=== PATIENT | female | born 1960 | race Caucasian/White ===

== ENCOUNTER 2024-11-26 09:20 | Emergency (ER) | payer OTHER, SELFPAY ==
--- OUTSIDE RECORDS SUMMARY | 2024-11-26 09:23 | XMS_ITS | Clinical Summary ---
Author Organization [facility] Address [facility] [place] [address] Care Team Providers Care Layout Technician Name Role Phone Mercy Forbes LIFE SCIENCES MANAGER Primary Care Provider [phone] Allergies Active Allergy Reactions Criticality Noted Date Comments Cephalexin Hives 02/25/2024 Medications omeprazole EC (PRILOSEC OTC) 20 MG tablet Take 1 tablet (20 mg total) by mouth daily. Active Active Problems No known active problems Resolved Problems Problem Noted Date Diagnosed Date Resolved Date Soft tissue mass 05/13/2024 07/07/2024 Social History Tobacco Use Types Packs/Day Years Used Date Smoking Tobacco: Every Day Cigarettes Smokeless Tobacco: Never Tobacco Cessation:Ready to Q uit: No; Counseling Given: No Alcohol Use Standard Drinks/Week Comments Yes 0 (1 standard drink = 0.6 oz pur e alcohol) Socially Comments No Sex and Gender Information Value Date Recorded Sex Assigned at Not on file Legal Sex Female 8:01 PM CDT Gender Identity Not on file Sexual Orientation Not on file Last Filed Vital Signs Vital Sign Reading Time Taken Comments Blood Pressure 146/85 07/07/2024 12:54 PM HEAD GREENSKEEPER Pulse 75 07/07/2024 12:54 PM HEAD GREENSKEEPER Temperature 36.7 C (98.1 F) 07/07/2024 12:54 PM HEAD GREENSKEEPER Respiratory Rate 16 07/07/2024 12:54 PM HEAD GREENSKEEPER Oxygen Saturation 98% 07/07/2024 12:54 PM HEAD GREENSKEEPER Inhaled Oxygen Concentration - - Weight 61.2 kg (135 lb) 06/14/2024 1:03 PM HEAD GREENSKEEPER Height 177.8 cm (5' 10 ) 06/14/2024 1:03 PM HEAD GREENSKEEPER Body Mass Index 19.37 06/14/2024 1:03 PM HEAD GREENSKEEPER Plan of Treatment Health Maintenance Due Date Last Done Comments Cervical Cancer Screening Pap Smear (Age 30 to 64) Every 3 Years 1962 Colorectal Cancer Screening Colonoscopy (10 Years) 1962 Annual Physical 1965 Hepatitis C 1980 DTaP, Tdap and Td Vaccines (1 - Tdap) 1981 Pneumococcal Vaccine: 50+ Years (1 of 2 - PCV) 1981 Cervical Cancer Screening Pap with HPV Testing (Age 30 to 64) Every 5 Years 1992 Cervical Cancer Screening with HPV 1992 Mammogram Screening 2002 Zoster Vaccines (1 of 2) 2012 COVID-19 Vaccine ( season) 2024 05/01/2023, 04/30/2022, 07/14/2021, Additional history exists PHQ-2 (Physician [place]) 07/13/2024 RSV Immunization or 60+ Years (1 - 1-dose 75+ series) 2037 Meningococcal B Vaccine Aged Out No l onger eligible based on patient's age to complete this topic Meningococcal Vaccine Aged Out No liliana natalya eligible based on patient's age to complete this topic RSV Immunizations Under 20 Months Aged Out No longer eligible based on patient's age to complete this topic Insurance [address] [place] [id number] [employer] Care Teams Layout Technician Relationship Specialty Start Date End Date Mercy Forbes FNP [address] [place] [id number] PCP - General Nurse Practitioner Family 02/25/24
--- OUTSIDE RECORDS SUMMARY | 2024-11-26 09:23 | XMS_ITS | Data Portability ---
Author Organization [facility] Main Office Address [address] [place] [address] Assessment Encounter Date Assessment Date Assessment LastModified by Organization Details LastModified Time 10/30/2022 10/30/2022 Patient has moderate primary osteoarthritis both knee joints. Under sterile conditions I injected both knee joints in the office today with Euflexxa injection number 2. I will see her back next week for the 3rd injection both knees she voiced understanding agrees above plan she will call for any further problems difficulties or questions. Not available 10/30/2022 10:26:02 11/06/2022 11/06/2022 The patient has moderately severe primary osteoarthritis both knees under sterile conditions I injected both knee joints in the office today with Euflexxa injection number 3. She tolerated procedure well. Will see her back in 6 months if necessary for another round of gel shots versus cortisone in between again if necessary. She voiced understanding and agrees above plan she will call for any further problems difficulties or questions. Not available 11/06/2022 09:11:22 04/02/2023 04/02/2023 The patient has moderately advanced primary osteoarthritis both knees. Under sterile conditions at her request I injected both knee joints in the office today with 4 cc 0.5% ropivacaine and 20 mg of Kenalog each. Patient tolerated the procedure well. I will see her back as needed we can do gel shots again in a couple of months if she would like to try them again versus cortisone in 3 months. She voiced understanding agrees above plan she will call for any further problems difficulties or questions. Not available 04/02/2023 14:23:24 08/27/2023 08/27/2023 The patient has moderate primary osteoarthritis both knee joints as described under sterile conditions I injected both knee joints in the office today with 4 cc 0.5% bupivacaine and 20 mg of Kenalog each. Patient tolerated the procedure well. I will see her back as needed we can do gel shots next time if she would like she is going to think about it she voiced understanding agrees above plan she will call for any further problems difficulties or questions. We could do this again in 3 months verses gel shots in a couple of months if necessary. Not available 08/27/2023 09:26:19 05/13/2024 05/13/2024 The patient has moderate primary osteoarthritis both knees under sterile conditions I injected both knee joints in the office today with 4 cc of 0.5% bupivacaine and 20 mg of Kenalog each. The patient tolerated the procedures well. I will see her back as needed we can do this again in 3 months if necessary last time she made it almost 9 months. She voiced understanding agrees above plan she will call for any further problems difficulties or questions. Not available 05/13/2024 10:48:34 Plan of Treatment Reminders Order Date Submit Date Provider Last Modified By Organization Details Last Modified Time Details Appointments None recorded. Lab None recorded. Referral None recorded. Procedures injection/a spiration joint/bursa (PROC) 2023 024 [email or web address] In-Office Order, Internal Use Only DO Not Attach Compendium DO Not Attach Compendium, Do Not Delete/merge, [id number] 10:41:16 injection/a spiration joint/bursa (PROC) 2023 024 [email or web address] In-Office Order, Internal Use Only DO Not Attach Compendium DO Not Attach Compendium, Do Not Delete/merge, [id number] 09:04:33 injection/a spiration joint/bursa (PROC) - in office procedure, administere d by provider 2022 023 [email or web address] In-Office Order, Internal Use Only DO Not Attach Compendium DO Not Attach Compendium, Do Not Delete/merge, [id number] 14:20:22 knee aspiration/ injection (PROC) 2022 023 [email or web address] In-Office Order, Internal Use Only DO Not Attach Compendium DO Not Attach Compendium, Do Not Delete/merge, [id number] 09:02:00 knee aspiration/ injection (PROC) 2022 023 [email or web address] In-Office Order, Internal Use Only DO Not Attach Compendium DO Not Attach Compendium, Do Not Delete/merge, [id number] 10:16:48 Surgeries None recorded. Imaging None recorded. Medication Orders bupivacaine HCl 0.5 % (5 mg/mL) injection solution 2023 024 [email or web address] [id number], [address] [place] [address], [address], 4 10:49:16 Kenalog 10 mg/mL suspension for injection 2023 024 [email or web address] [id number], [address], [address], 4 10:49:16 bupivacaine HCl 0.5 % (5 mg/mL) injection solution 2023 024 [email or web address] [id number], [address] [facility] [address] [place] [address], [address], 4 10:36:09 Kenalog 10 mg/mL suspension for injection 2023 024 [email or web address] [id number], [address] [facility] [address] [place] [address], [address], 4 10:36:24 Kenalog 10 mg/mL suspension for injection 2022 023 [email or web address] [id number], [address] [place], [place], [id number], 4 10:36:24 ropivacaine (PF) 5 mg/mL (0.5 %) injection solution 2022 023 [email or web address] [id number], [address], [place], [id number], 4 10:36:48 Euflexxa 10 mg/mL (mw 2.4-3.6 million) intra-artic ular syringe 2022 023 [email or web address] [id number], [address], [place], [id number], 4 10:36:19 Euflexxa 10 mg/mL (mw 2.4-3.6 million) intra-artic ular syringe 2022 023 [email or web address] [id number], [address], [place], [id number], 10:36:19 Patient TargetsNo targets recorded. Patient Instructions Encounter Date Encounter Id Patient Instructions Last Modified By Organization Details Last Modified Time 08/27/2023 [id number] viscosupplementa tion treatment* Not available 08/31/2023 14:47:17 Reason for Referral None Reported. Problems Name Problem SNOMED Code Status Onset Date Resolution Date Notes Provider Name and Address Organization Details Recorded Time Pain of bilateral knee joints 4573188747024 04 Active 2022 Mariam Reddy ATC L null, [employer] 3 08:56:11 Bilateral osteoarthri tis of knees 1545074029073 07 Active 2022 Mariam Reddy ATC L null, [employer] 3 08:58:28 Problem Notes None recorded. Procedures Surgical History Date Name Laterality Status Provider Name and Address Organization Details Recorded Time 3 Ortho - Cortisone Injection completed Leo Power MD [address] [place] [address], [id number], [employer] 09/18/2022 10:17:25 Imaging Results None recorded. Procedure Notes None recorded. Medical Equipment None Reported. Allergies Allergen ID Allergen Name Allergen Category Reaction Reaction Severity Criticality Documentation Date Start Date Code Code System Note Provider Name and Address Organization Details Recorded Time 29146 Keflex medicatio n hives Not available Not available 09/10/202225411 7 RxNorm Not Available [facility] 3 13:14:35 Medications Name Sig Start Date Stop Date Status Note LastModified by Organization Details LastModified Time cyclobenzap rine 10 mg tablet TAKE 1 TABLET BY MOUTH THREE TIMES DAILY NEEDED FOR MUSCLE SPASMS 05/13 completed Not Available Not Available Not Available silver sulfadiazin e 1 % topical cream 05/13 completed Not Available Not Available Not Available bupropion HCl SR 150 mg tablet,12 hr sustained-r elease 05/13 completed Not Available Not Available Not Available prednisone 10 mg tablet 05/13 completed Not Available Not Available Not Available hydrocortis one-pramoxi ne 2.5 %-1 % rectal cream 05/13 completed Not Available Not Available Not Available azithromyci n 250 mg tablet TAKE 2 TABLETS BY MOUTH FOR 1 DAY THEN TAKE 1 TABLET BY MOUTH DAILY FOR 4 DAYS 05/13 completed Not Available Not Available Not Available hydrocodone 5 mg-acetamin ophen 325 mg tablet TAKE 1 TABLET BY MOUTH EVERY 8 HOURS NEEDED FOR PAIN 09/18 completed Not Available Not Available Not Available meloxicam 15 mg tablet Take 1 tablet every day by oral route. 04/26 completed Not Available Not Available Not Available famotidine 40 mg tablet 04/26 completed Not Available Not Available Not Available bupivacaine HCl 0.5 % (5 mg/mL) injection solution Take 40 mg by injection route. 2023 active Not Available Not Available Not Avai lable prednisone 20 mg tablet 05/13 completed Not Available Not Available Not Available permethrin 5 % topical cream 05/13 completed Not Available Not Available Not Available sumatriptan 50 mg tablet 05/13 completed Not Available Not Available Not Available omeprazole 40 mg capsule,del ayed release 05/13 completed Not Available Not Available Not Available hydrocortis one acetate 25 mg rectal suppository 05/13 completed Not Available Not Available Not Available pantoprazol e 20 mg tablet,hayley yed release 05/13 completed Not Available Not Available Not Available prednisone 10 mg tablets in a dose pack Take 1 tab by mouth, 3 times a day for 3 daysTake 1 tab by mouth 2 times a day for 2 daysTake 1 tab by mouth once a day for 1 day 05/13 completed Not Available Not Available Not Available lorazepam 0.5 mg tablet 05/13 completed Not Available Not Available Not Available Kenalog 10 mg/mL suspension for injection Take 40 mg by injection route. 2023 active ND: 0003- 0494- 20 Not Available Not Available Not Available meclizine 25 mg tablet TAKE 1 TABLET BY MOUTH TWICE DAILY NEEDED FOR DIZZINESS 05/13 completed Not Available Not Available Not Available mupirocin 2 % topical ointment 05/13 completed Not Available Not Available Not Available diclofenac sodium 50 mg tablet,hayley yed release 05/13 completed Not Available Not Available Not Available sulindac 200 mg tablet 05/13 completed Not Available Not Available Not Available amoxicillin 875 mg-potassiu m clavulanate 125 mg tablet 05/13 completed Not Available Not Available Not Available cyclobenzap rine 5 mg tablet 04/26 completed Not Available Not Available Not Available Euflexxa 10 mg/mL (mw 2.4-3.6 million) intra-artic ular syringe Inject 2.5 mL by intra-art icular route for 35 days. 05/13 completed Not Available Not Available Not Available cyclobenzap rine 04/26 completed Not Available Not Available Not Available lidocaine (PF) 10 mg/mL (1 %) injection solution In office injection administe red by the provider 04/26 completed ND: 0409- 4276- 17 Not Available Not Available Not Available Allergy Relief-D (cetirizine ) 5 mg-120 mg tablet,exte nded release TAKE 1 TABLET TWICE DAILY 04/26 completed Not Available Not Available Not Available ropivacaine (PF) 5 mg/mL (0.5 %) injection solution Take 40 mg by injection route. 05/13 completed [facility] [phone]- [phone] Not Available Not Available Not Available Chantix Starting Month Box 0.5 mg (11)-1 mg (42) tablets in dose pack 05/13 completed Not Available Not Available Not Available Zilretta 32 mg intra-artic ular suspension, extended release Injection s given in the office by the doctor 04/26 completed [facility]: [phone] -003- 01 Not Available Not Available Not Available Vitals Date Recorded Body height Body mass index (BMI) Body weight Provider Name and Address Organization Details Last Updated DateTime 10/30/2022 177.8 cm 20.1 kg/m2 13646.93 g Ariela Linda, GENERAL [employer] [facility] 10/30/2022 10:14:39 Date Recorded Body height Body mass index (BMI) Body weight Provider Name and Address Organization Details Last Updated DateTime 11/06/2022 177.8 cm 20.1 kg/m2 60168.93 g Ariela Linda, GENER[employer] [facility] 11/06/2022 09:00:32 Date Recorded Body height Body mass index (BMI) Body weight Provider Name and Address Organization Details Last Updated DateTime 04/02/2023 177.8 cm 19.4 kg/m2 44487.97 g Xena Jordan [facility] 04/02/2023 14:04:17 Date Recorded Body height Body mass index (BMI) Body weight Provider Name and Address Organization Details Last Updated DateTime 08/27/2023 177.8 cm 20.1 kg/m2 28016.93 g Ariela Linda, [facility] 08/27/2023 09:02:50 Date Recorded Body height Body mass index (BMI) Body weight Provider Name and Address Organization Details Last Updated DateTime 05/13/2024 177.8 cm 19.4 kg/m2 15530.97 g Ariela Linda, GENERAL ASSEMBL[employer] [facility] 05/13/2024 10:35:42 Social History None recorded. Functional Status Question Answer Note LastModified by Organizat ion Details LastModified Time What is your level of alcohol consumption? Occasional Information not available 05/13/2024 Mental Status None recorded. Family History Relationship Description Onset Age of this Age Resolved Age Notes LastModified by Organization Details LastModified Time Father Family history of malignant neoplasm [id number] Not available 09/10/2022 13:11:17 Sister Family history of malignant neoplasm [id number] Not available 09/10/2022 13:11:17 Unspecified Relation Hypertensive disorder [email or web address] Not available 03/2023 08:57:45 Unspecified Relation Diabetes mellitus [email or web address] Not available 03/2023 08:57:52 Medical History Condition Response ARTHRITIS Y Gynecological HistoryNo gynecological history recorded. Obstetrics History GPAL:G 0 P 0 0 0 0 Past Encounters Encounter ID Performer Location Encounter Start Date Encounter Closed Date Diagnosis/Indication Diagnosis SNOMED-CT Code Diagnosis ICD10 Code Diagnosis Note [id number] BROOKE Couch [facility] [address] [place] [address] 04/26/2021 00:00:00 04/26/2021 14:50:29 [id number] Leo Power MD [facility] [address] [place] [address] 09/18/2022 08:35:02 09/18/2022 11:04:48 Pain of bilateral knee joints 0940760652 10835 M25.561 M25.562 Bilateral osteoarthritis of knees 1452252363 50277 M17.0 [id number] Leo Power MD [facility] [address] [place] [address] 10/23/2022 11:13:11 10/23/2022 12:17:41 Bilateral osteoarthritis of knees 8054668200 37197 M17.0 Pain of bi lateral knee joints 8516543193 78655 M25.561 M25.562 [id number] Leo Power MD [facility] [address] [place] [address] 10/30/2022 10:10:36 10/30/2022 11:19:21 Bilateral osteoarthritis of knees 8095512468 95947 M17.0 Pain of bi lateral knee joints 2307145696 86210 M25.561 M25.562 [id number] Leo Power MD [facility] [address] [place] [address] 11/06/2022 08:41:38 11/06/2022 12:07:38 Bilateral osteoarthritis of knees 1591777262 54596 M17.0 Pain of bi lateral knee joints 5682732748 11634 M25.561 M25.544 [id number] Leo Power MD [facility] [address] [place] [address] 04/02/2023 14:02:29 04/02/2023 14:31:45 Bilateral osteoarthritis of knees 2543419832 51765 M17.0 Pain of bi lateral knee joints 5116306700 83831 M25.561 M25.996 [id number] Rony Joseph MD [facility] [address] [place] [address] 08/27/2023 08:57:46 08/27/2023 10:48:40 Bilateral osteoarthritis of knees 7684181375 73730 M17.0 Pain of bi lateral knee joints 6898779075 67927 M25.561 M25.728 [id number] Raman Fay MD [facility] [address] [place] [address] 05/13/2024 10:11:39 05/13/2024 10:44:57 Bilateral osteoarthritis of knees 3678976561 39598 M17.0 Pain of bi lateral knee joints 5936651216 88007 M25.561 M25.562 Health Concerns Section Related Observation LastModified by Organization Detai ls LastModified Time None Recorded Concern Status LastModified by Organization Details LastModified Time None Recorded Advance Directives Directive None Recorded Payers Encounter Date Sequence Insurance Name Policy Number Policy Thompson Covered Member ID Thompson Member ID Guarantor Name 10/30/2022 1 [place] [id number] Tonia R Showers [id number] Tonia R Showers 11/06/2022 1 [place] [id number] Tonia R Showers [id number] Tonia R Showers 04/02/2023 1 [place] [id number] Tonia R Showers [id number] Tonia R Showers 08/27/2023 1 [place]IS[place] (O) [id number] Tonia R Showers [id number] Tonia R Showers 05/13/2024 1 [employer]IS[employer] (O) [id number] Tonia R Showers [id number] Tonia R Showers Notes Date Note Type Note Provider Name and Address Organization Details Recorded Time 10/30/2022 text/html Patient returns for Euflexxa injection number 2 both knees. Patient has moderately advanced primary osteoarthritis both knees particularly the medial compartments she states the 1st round of injections are starting to give her some relief. Denies any erythema heat effusion or signs of infection today. BROOKE Couch [address], [place], [address], [employer] 10/30/2022 10:26:13 11/06/2022 text/html Patient returns for Euflexxa injection 3. Both knees. She is getting good relief from the 1st 2 rounds of injections denies any significant problems today. No erythema heat effusion or signs of infection. She has moderately advanced primary osteoarthritis both knees. BROOKE Couch [address], [place], [address], [employer] 11/06/2022 09:11:33 04/02/2023 text/html patient returns complaining of bilateral knee pain. She did very well with gel shots 5 months ago recently her knees have started to flare up again. She has moderate primary osteoarthritis both knees noted on previous x-ray. 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 Denies any effusion or swelling in either knee. She comes in today requesting repeat cortisone injections both knees. 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 which aggravates her knees she states she has done very well with cortisone and gel shots previously it has been about 5 months since her last cortisone injections she would like to repeat those today she was thinking about doing gel shots but she will try cortisone today. Denies any new symptoms no new trauma or injury. BROOKE Couch [address] [facility] [address], [place], [address], [employer] [facility] 08/27/2023 09:26:31 05/13/2024 text/html Patient returns with bilateral knee pain she has moderate primary osteoarthritis both knees previous x-rays showed irregularity of the weight-bearing surfaces tibial femoral articulations it appears she may have a small OCD lesion in the medial femoral condyle in the right knee. She gets good relief from conservative measures it has been nearly 9 months since her last cortisone injections. Denies any new trauma or injury to either knee she has aching pain about a 7 on a scale of 1-10 she does not take any oral anti-inflammatory medication states that she gets very good relief from a cortisone however recently it has worn off she would like to have those repeated today denies any effusion or swelling no mechanical symptoms. She does have trouble with standing or walking for long periods which causes more aching. At 63 years of age she is not interested in total knee arthroplasty at this time she is otherwise quite active. New past medical history sheet was reviewed and signed on the intake sheet of today's date drug allergies current medications family social history previous surgical history 10 point review of systems was reviewed and discussed in detail today with the patient. BROOKE Couch [address], [place], [address], [employer] 05/13/2024 10:49:12 OBGyn Episode No OBEpisode recorded.
[2024-11-26 09:55] VITALS: BP 153/88; PULSE 72; RESP 16; TEMP 36.4; O2SAT 100
--- NOTE | 2024-11-26 10:08 | ED.GENADULT ---
HPI - General Adult General Chief complaint: Skin/Abscess/Foreign Body Stated complaint: Swollen L wrist Time Seen by Provider: 11/26/24 10:08 Source: patient Mode of arrival: ambulatory Limitations: no limitations History of Present Illness HPI narrative: 64 year old female patient presents to the [facility] with complaints of swelling and redness to the left hand/ wrist that started 2 days ago. Patient denies any fevers body aches or chills. Patient states that she did get her nails on Thursday and started having issues with pain and swelling. Denies ever having issues with skin infections before the past. Patient states she has been putting ice on it. Related Data Home Medications Medication Instructions Recorded Confirmed Last Taken Type loratadine 10 mg tablet (Claritin) 10 mg PO DAILY PRN 01/29/23 06/24/24 Unknown History Allergies Allergy/AdvReac Type Severity Reaction Status Date / Time cephalexin Allergy Mild Hives Verified 11/26/24 10:07 Review of Systems Review of Systems: CONSTITUTIONAL: Denies fever, chills, or sweats. EYES: Denies visual changes, redness, or discharge. ENT: Denies rhinorrhea, congestion, sore throat, or otalgia. CARDIOVASCULAR: Denies chest pain, palpitations, or edema. RESPIRATORY: Denies cough or dyspnea. GASTROINTESTINAL: Denies abdominal pain, nausea, vomiting, or diarrhea. GENITOURINARY: Denies dysuria or hematuria. SKIN: Positive redness, swelling to the left hand with mild itching. MUSCULOSKELETAL: Denies back pain, joint pain, or myalgia. NEUROLOGIC: Denies headache, numbness, or weakness. PSYCHIATRIC: Denies anxiety or depression. 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 There is no relevant family history pertinent to the presenting complaint. Exam Narrative: GENERAL: Well-appearing, well-nourished, and in no acute distress. HEAD: Normocephalic, atraumatic. EYES: PERRLA and EOMI. ENT: Nares clear, no rhinorrhea or epistaxis. Mucous membranes moist. NECK: Supple. No lymphadenopathy CHEST: Clear to auscultation. No respiratory distress. HEART: Regular rate and rhythm. No murmur heard. Normal peripheral pulses. ABDOMEN: Soft, nontender, nondistended, normal active bowel sounds. EXTREMITIES: Normal range of motion. No edema. SKIN: Warm, dry, patient has erythema and swelling noted to the left hand with warmth present. Patient does have swelling noted to the knuckles to the 3rd 4th and 5th PIP joints as compared to the right hand. There is no obvious open wounds noted. The swelling does extend to the wrist area. NEURO: No focal deficits. Alert and oriented x3. Course Course Level of Care: Express Care Visit Vital Signs Vital signs: Vital Signs Temperature 36.4 C 11/26/24 09:55 Pulse Rate 72 11/26/24 09:55 Respiratory Rate 16 11/26/24 09:55 Blood Pressure 153/88 H 11/26/24 09:55 Pulse Oximetry 100 11/26/24 09:55 Oxygen Delivery Room Air 11/26/24 09:55 Temperature 36.4 C 11/26/24 09:55 Pulse Rate 72 11/26/24 09:55 Respiratory Rate 16 11/26/24 09:55 Blood Pressure 153/88 H 11/26/24 09:55 Pulse Oximetry 100 11/26/24 09:55 Oxygen Delivery Room Air 11/26/24 09:55 vital signs reviewed. The patient has been informed that they may have pre-hypertension or Hypertension based on a BP reading in the department. I recommend that the patient call the primary care provider listed on their discharge instructions or a physician of their choice this week to arrange follow up for further evaluation of possible pre-hypertension or Hypertension Medical Decision Making MDM Narrative Medical decision making narrative: Plan of care for patient is discharge home with oral antibiotics for cellulitis infection. Discussed the with the patient she can use heat to the area to help with the pain may take Tylenol and ibuprofen. Discussed with patient to continue to clean the area with soap water. Discussed with her that this could have resulted due to her recent manicure but I do not see any obvious open wounds at this time. Discussed with her she should also elevate the hand above the heart level to decrease the swelling. Patient verbalized understanding denies any other questions or concerns at this time. Differential Diagnosis Differential Diagnosis: Differential diagnosis: Abscess, cellulitis, hidradenitis, laceration, puncture wound. Vital Signs Vital Signs: Vital Signs Temperature 36.4 C 11/26/24 09:55 Pulse Rate 72 11/26/24 09:55 Respiratory Rate 16 11/26/24 09:55 Blood Pressure 153/88 H 11/26/24 09:55 Pulse Oximetry 100 11/26/24 09:55 Oxygen Delivery Room Air 11/26/24 09:55 Temperature 36.4 C 11/26/24 09:55 Pulse Rate 72 11/26/24 09:55 Respiratory Rate 16 11/26/24 09:55 Blood Pressure 153/88 H 11/26/24 09:55 Pulse Oximetry 100 11/26/24 09:55 Oxygen Delivery Room Air 11/26/24 09:55 Critical Care Time Critical Care Time Critical Care Time: No Discharge Plan Discharge Clinical Impression: Cellulitis of hand, left Patient Disposition: Home Condition: Stable Instructions: Antibiotic Form, Cellulitis (ED) Additional Instructions: Take the prescribed antibiotic medicine you are given as directed until it is gone. Take it even if you feel better. It treats the infection and stops it from returning. Not taking all the medicine can make future infections hard to treat. Keep the infected area clean. When possible, raise the infected area above the level of your heart. This helps keep swelling down. May take Tylenol ibuprofen as needed for pain Take your temperature once a day for a week to monitor for fevers. If you do spike a fever please call your doctor right away. Wash your hands often to prevent spreading the infection. In the future, wash your hands before and after you touch cuts, scratches, or bandages. This will help prevent infection. Please call your doctor today and be scheduled for follow-up appointments in regards to being evaluated for vascular disease. When to call your healthcare provider Call your healthcare provider immediately if you have any of the following: Difficulty or pain when moving the joints above or below the infected area Discharge or pus draining from the area Fever of 100.4?F (38?C) or higher, or as directed by your healthcare provider Pain that gets worse in or around the infected Redness that gets worse in or around the infected area, particularly if the area of redness expands to a wider area Shaking chills Swelling of the infected area Vomiting Patient Language: Danish Prescriptions: New clindamycin HCl [Cleocin HCl] 300 mg capsule 300 mg PO Q8H 7 Days Qty: 21 0RF clindamycin HCl [Cleocin HCl] 150 mg capsule 150 mg PO Q8H 7 Days Qty: 21 0RF No Action cyclobenzaprine 10 mg tablet 10 mg PO TID PRN (Reason: muscle spasm) Qty: 20 0RF loratadine [Claritin] 10 mg tablet 10 mg PO DAILY PRN meclizine 25 mg tablet 25 mg PO BID PRN (Reason: dizziness) Qty: 30 0RF omeprazole 20 mg tablet,delayed release (DR/EC) 20 mg PO DAILY Qty: 30 2RF Follow-up/Referrals: [facility] [Primary Care Provider] - Time of Disposition: 10:19
== END 2024-11-26 10:20 | disposition home or self-care (01) ==
PROVIDERS: Emergency Provider Nurse Practitioner Family; PCP Nurse Practitioner Family
DX: L03.114 Cellulitis of left upper limb (principal); M17.11 Unilateral primary osteoarthritis, right knee; Z90.711 Acquired absence of uterus with remaining cervical stump
CPT/HCPCS: 99213; G0463